=== PATIENT | male | born 1950 | race Caucasian/White ===

== ENCOUNTER → 2016-09-02 | Outpatient (CLI) | payer OTHER ==
[2016-09-02 09:41] LABS: BASO % 0.6 %; BASO ABS # 0.04 K/uL (0-0.2); COMPLETE YES; EOS % 3.4 %; IG% 0.2 %; LYMPH % 28.7 %; LYMPH ABS # 1.77 K/uL (1.2-3.4); MEAN CELL VOLUME 86.3 fL (80-100); MEAN CORPUSCULAR HEMOGLOBIN 28.1 pg (25-34); MEAN CORPUSCULAR HGB CONC 32.6 g/dl (32-36); MEAN PLATELET VOLUME 9.9 fL (7.4-10.4); MONO % 8.8 %; NEUT % 58.3 %; PLATELET COUNT 225 K/uL (130-400); RED BLOOD COUNT 4.98 M/uL (4.7-6.1); WHITE BLOOD COUNT 6.16 K/uL (4.8-10.8)
[2016-09-02 09:43] LABS: URINE APPEARANCE CLEAR (CLEAR); URINE BILIRUBIN NEG (NEG); URINE COLOR YELLOW; URINE EPITHELIAL CELL AUTO 0-5 /lpf (0-5); URINE NITRITE NEG (NEG); URINE PH 7.5 (4.5-7.5); URINE SPECIFIC GRAVITY 1.016 (1.000-1.030); UROBILINOGEN NEG (NEG)
[2016-09-02 09:45] LABS: MANUAL MICROSCOPIC REQUIRED? NO; REVIEW REQ? NO
[2016-09-02 09:51] LABS: ESTIMATED AVERAGE GLUCOSE 105 mg/dl; HA1C FLAG Normal (Normal)
[2016-09-02 10:07] LABS: ALT/SGPT 23 U/L (12-78); AST/SGOT 14 U/L (15-37); BLOOD UREA NITROGEN 13 mg/dl (7-18); BUN/CREATININE RATIO 13.4 (10-20); CALCIUM 8.9 mg/dl (8.5-10.1); CARBON DIOXIDE 28 mmol/L (21-32); CHLORIDE 106 mmol/L (98-107); CHOLESTEROL 122 mg/dl (0-200); GLUCOSE 87 mg/dl (70-99); POTASSIUM 3.9 mmol/L (3.5-5.1); SODIUM 141 mmol/L (136-145); TRIGLYCERIDES 85 mg/dl (0-150); URIC ACID 4.1 mg/dl (2.6-7.2); VERY LOW DENSITY LIPOPROT CALC 17 mg/dl
[2016-09-02 10:18] LABS: CHOLESTEROL/HDL RATIO 2.7; HDL CHOLESTEROL 45 mg/dl; LDL CHOLESTEROL CALCULATED 60 mg/dl
== END | disposition home or self-care (01) ==
LOC: C.LAB1850 07:56
PROVIDERS: ATTEND Internal Medicine
DX: E78.00 Pure hypercholesterolemia, unspecified (principal)

== ENCOUNTER → 2017-04-06 | Outpatient (CLI) | payer OTHER ==
[2017-04-06 09:46] LABS: BASO % 0.3 %; BASO ABS # 0.02 K/uL (0-0.2); EOS % 3.9 %; EOS ABS # 0.29 K/uL (0-0.5); HEMATOCRIT 43.2 % (42-52); HEMOGLOBIN 14.4 g/dL (14.0-18.0); IG# 0.02 K/uL (0.00-0.02); LYMPH % 28.4 %; LYMPH ABS # 2.12 K/uL (1.2-3.4); MEAN CELL VOLUME 87.3 fL (80-100); MEAN CORPUSCULAR HEMOGLOBIN 29.1 pg (25-34); MEAN CORPUSCULAR HGB CONC 33.3 g/dl (32-36); MEAN PLATELET VOLUME 9.9 fL (7.4-10.4); MONO % 13.1 %; MONO ABS # 0.98 K/uL (0.11-0.59); NEUT ABS # 4.03 K/uL (1.4-6.5); PLATELET COUNT 216 K/uL (130-400); RED CELL DISTRIBUTION WIDTH CV 13.8 % (11.5-14.5); RED CELL DISTRIBUTION WIDTH SD 44.2 fL (36.4-46.3); WHITE BLOOD COUNT 7.46 K/uL (4.8-10.8)
[2017-04-06 11:04] LABS: ALT/SGPT 25 U/L (12-78); BLOOD UREA NITROGEN 15 mg/dl (7-18); CALCIUM 8.8 mg/dl (8.5-10.1); CARBON DIOXIDE 30 mmol/L (21-32); CREATININE 0.89 mg/dl (0.60-1.40); GLUCOSE 97 mg/dl (70-99); POTASSIUM 3.9 mmol/L (3.5-5.1); SODIUM 140 mmol/L (136-145)
[2017-04-06 11:08] LABS: AST/SGOT 17 U/L (15-37); CHOLESTEROL 122 mg/dl (0-200); LDL CHOLESTEROL CALCULATED 60 mg/dl
== END | disposition home or self-care (01) ==
LOC: C.LAB1850 07:56
PROVIDERS: ATTEND Internal Medicine
DX: E78.00 Pure hypercholesterolemia, unspecified (principal)